=== PATIENT | female | born 1970 | race Caucasian/White ===

== ENCOUNTER 2020-11-06 07:13 | Emergency (ER) | payer OTHER ==
[2020-11-06 07:46] VITALS: BP 116/67; PULSE 78
[2020-11-06] MEDS ORDERED: Sodium Chloride 0.9% 10 ML Syringe FLUSH PRN (07:51)
[2020-11-06] MEDS ORDERED: Ondansetron 4 MG/2 ML SDV IVPUSH ONE (07:52)
--- NOTE | 2020-11-06 07:54 | EDM.PDOC ---
ED HPI GENERAL MEDICAL PROBLEM - General Chief Complaint: Gastrointestinal Problem Stated Complaint: vomiting, shaking Time Seen by Provider: 11/06/20 07:47 Source of Information: Reports: Patient, Family, RN Notes Reviewed History Limitations: Reports: No Limitations - History of Present Illness INITIAL COMMENTS - FREE TEXT/NARRATIVE: 50-year-old female presents emergency department with a complaint of nausea vomiting diarrhea she has been ill for about 24 hours no fevers no shortness of breath or chest pain she was concerned she may have food poisoning however she is the only one that sick in the household that ate the same food. She did receive Covid vaccine first dose - Related Data Allergies Allergy/AdvReac Type Severity Reaction Status Date / Time lactose Allergy Cannot Verified 11/06/20 07:35 Remember monosodium glutamate Allergy Cannot Verified 11/06/20 07:35 Remember bisacodyl AdvReac Nausea and Verified 11/06/20 07:35 Vomiting artificial sweetners AdvReac Diarrhea Uncoded 11/06/20 07:35 Home Meds: Home Meds Albuterol Sulfate [Proair Hfa] 1 - 2 puff IH Q4HR PRN 03/21/16 [History] Beclomethasone Dipropionate [Qvar] 2 puff IH BID 03/21/16 [History] Budesonide [Budesonide EC] 9 mg PO DAILY 03/21/16 [History] EPINEPHrine [Epipen 2-Hakeem] 0.3 mg SUBCUT ASDIRECTED PRN 03/21/16 [History] Lactase 3,000 unit PO DAILY 03/21/16 [History] Levothyroxine 25 mcg PO ACBREAKFAST 03/21/16 [History] Montelukast [Singulair] 10 mg PO BEDTIME 03/21/16 [History] tiZANidine 1 tab PO BEDTIME 11/06/20 [History] Past Medical History HEENT History: Reports: Allergic Rhinitis, Impaired Vision Respiratory History: Reports: Asthma Gastrointestinal History: Reports: Chronic Diarrhea, GERD, Other (See Below) Other Gastrointestinal History: lymphocytic colitis [employer] History: Reports: Endometriosis Endocrine/Metabolic History: Reports: Hypothyroidism - Past Surgical History Respiratory Surgical History: Reports: None GI Surgical History: Reports: Colonoscopy, EGD Female Surgical History: Reports: Other (See Below) Other Female Surgeries/Procedures: uteral resectioning Social & Family History - Tobacco Use Tobacco Use Status *Q: Never Tobacco User ED ROS GENERAL - Review of Systems Review Of Systems: See Below Constitutional: Reports: Weakness HEENT: Reports: No Symptoms Respiratory: Reports: No Symptoms Cardiovascular: Reports: No Symptoms GI/Abdominal: Reports: Abdominal Pain (From dry heaves), Diarrhea, Nausea, Vomiting : Reports: No Symptoms ED EXAM, GI/ABD - Physical Exam Exam: See Below Exam Limited By: No Limitations General Appearance: Alert, WD/WN, No Apparent Distress Respiratory/Chest: No Respiratory Distress, Lungs Clear, Normal Breath Sounds, No Accessory Muscle Use, Chest Non-Tender Cardiovascular: Regular Rate, Rhythm, No Murmur GI/Abdominal Exam: Soft, Non-Tender Course - Vital Signs Last Recorded V/S: Last Vital Signs Temp 96.8 F L 11/06/20 07:44 Pulse 78 11/06/20 07:44 Resp 14 11/06/20 07:44 BP 116/67 11/06/20 07:44 Pulse Ox 98 11/06/20 07:44 - Orders/Labs/Meds Orders: Active Orders 24 hr Category Date Time Status Peripheral IV Care [RC] . DIRECTED Care 11/06/20 07:51 Active Lactated Ringers [Ringers, Lactated] 1,000 ml Med 11/06/20 08:00 Active IV ASDIRECTED Sodium Chloride 0.9% [Saline Flush] Med 11/06/20 07:51 Active 10 ml FLUSH ASDIRECTED PRN Peripheral IV Insertion Adult [OM.PC] Urgent Oth 11/06/20 07:51 Ordered Medication Orders Lactated Ringer's (Ringers, Lactated) 1,000 mls @ 999 mls/hr IV ASDIRECTED CHRISTINA Last Admin: 11/06/20 08:09 Dose: 999 mls/hr Documented by: GARRET Sodium Chloride (Sodium Chloride 0.9% 10 Ml Syringe) 10 ml FLUSH ASDIRECTED PRN PRN Reason: Keep Vein Open Last Admin: 11/06/20 08:09 Dose: 10 ml Documented by: GARRET Labs: Laboratory Tests 11/06/20 11/06/20 11/06/20 Range/Units 07:52 08:09 08:09 WBC 9.0 (4.5-11.0) K/uL RBC 4.42 (3.30-5.50) M/uL Hgb 13.9 (12.0-15.0) g/dL Hct 42.5 (36.0-48.0) % MCV 96 (80-98) fL MCH 31 (27-31) pg MCHC 33 (32-36) % Plt Count 317 (150-400) K/uL Neut % (Auto) 67 H (36-66) % Lymph % (Auto) 25 (24-44) % Hockley % (Auto) 7 H (2-6) % Eos % (Auto) 0 L (2-4) % Baso % (Auto) 0 (0-1) % Sodium 146 (140-148) mmol/L Potassium 3.8 (3.6-5.2) mmol/L Chloride 106 (100-108) mmol/L Carbon Dioxide 29 (21-32) mmol/L Anion Gap 11.0 (5.0-14.0) mmol/L BUN 13 (7-18) mg/dL Creatinine 0.8 (0.6-1.0) mg/dL Est Cr Clr Drug Dosing 72.65 mL/min Estimated GFR (MDRD) > 60 (>60) Glucose 96 (74-106) mg/dL Lactic Acid (0.4-2.0) mmol/L Calcium 8.9 (8.5-10.1) mg/dL Urine Color (YELLOW) Urine Appearance (CLEAR) Urine pH (5.0-8.0) Ur Specific Pride (1.008-1.030) Urine Protein (NEGATIVE) mg/dL Urine Glucose (UA) (NEGATIVE) mg/dL Urine Ketones (NEGATIVE) mg/dL Urine Occult Blood (NEGATIVE) Urine Nitrite (NEGATIVE) Urine Bilirubin (NEGATIVE) Urine Urobilinogen (0.2-1.0) EU/dL Ur Leukocyte Esterase (NEGATIVE) Urine RBC (0-5) Urine WBC (0-5) Ur Epithelial Cells Amorphous Sediment Urine Bacteria Urine Mucus Influenza Type A RNA Negative (NEGATIVE) RSV RNA (INAAT) Negative (NEGATIVE) Influenza Type B RNA Negative (NEGATIVE) SARS-CoV-2 RNA (ERICA) Negative (NEGATIVE) 11/06/20 11/06/20 Range/Units 08:09 09:46 WBC (4.5-11.0) K/uL RBC (3.30-5.50) M/uL Hgb (12.0-15.0) g/dL Hct (36.0-48.0) % MCV (80-98) fL MCH (27-31) pg MCHC (32-36) % Plt Count (150-400) K/uL Neut % (Auto) (36-66) % Lymph % (Auto) (24-44) % [place]ock[place] % (Auto) (2-6) % Eos % (Auto) (2-4) % Baso % (Auto) (0-1) % Sodium (140-148) mmol/L Potassium (3.6-5.2) mmol/L Chloride (100-108) mmol/L Carbon Dioxide (21-32) mmol/L Anion Gap (5.0-14.0) mmol/L BUN (7-18) mg/dL Creatinine (0.6-1.0) mg/dL Est Cr Clr Drug Dosing mL/min Estimated GFR (MDRD) (>60) Glucose (74-106) mg/dL Lactic Acid 1.2 (0.4-2.0) mmol/L Calcium (8.5-10.1) mg/dL Urine Color Yellow (YELLOW) Urine Appearance Clear (CLEAR) Urine pH 8.5 H (5.0-8.0) Ur Specific Pride 1.020 (1.008-1.030) Urine Protein Negative (NEGATIVE) mg/dL Urine Glucose (UA) Negative (NEGATIVE) mg/dL Urine Ketones Negative (NEGATIVE) mg/dL Urine Occult Blood Negative (NEGATIVE) Urine Nitrite Negative (NEGATIVE) Urine Bilirubin Negative (NEGATIVE) Urine Urobilinogen 0.2 (0.2-1.0) EU/dL Ur Leukocyte Esterase Negative (NEGATIVE) Urine RBC Not seen (0-5) Urine WBC Not seen (0-5) Ur Epithelial Cells Rare Amorphous Sediment Not seen Urine Bacteria Rare Urine Mucus Not seen Influenza Type A RNA (NEGATIVE) RSV RNA (INAAT) (NEGATIVE) Influenza Type B RNA (NEGATIVE) SARS-CoV-2 RNA (ERICA) (NEGATIVE) Meds: Medications Generic Name Dose Route Start Last Admin Trade Name Freq PRN Reason Stop Dose Admin Lactated Ringer's 1,000 mls @ 999 mls/hr 11/06/20 08:00 11/06/20 08:09 Ringers, Lactated IV 999 mls/hr ASDIRECTED CHRISTINA Administration Sodium Chloride 10 ml 11/06/20 07:51 11/06/20 08:09 Sodium Chloride 0.9% 10 Ml Syringe FLUSH 10 ml ASDIRECTED PRN Administration Keep Vein Open Discontinued Medications Generic Name Dose Route Start Last Admin Trade Name Guero PRN Reason Stop Dose Admin Ketorolac Tromethamine 30 mg 11/06/20 09:46 11/06/20 09:53 Ketorolac 30 Mg/Ml Sdv IVPUSH 11/06/20 09:47 30 mg ONETIME ONE Administration Lorazepam 0.5 mg 11/06/20 09:07 11/06/20 09:16 Lorazepam 2 Mg/Ml Sdv IVPUSH 11/06/20 09:08 0.5 mg ONETIME ONE Administration Ondansetron HCl 4 mg 11/06/20 07:52 11/06/20 08:09 Ondansetron 4 Mg/2 Ml Sdv IVPUSH 11/06/20 07:53 4 mg ONETIME ONE Administration Departure - Departure Time of Disposition: 10:12 Disposition: Home, Self-Care 01 Condition: Fair Clinical Impression: Gastroenteritis - Discharge Information Instructions: Viral Gastroenteritis, Adult, [id number] Referrals: Xochilt Saenz PA [Primary Care Provider] - Forms: ED Department Discharge Additional Instructions: Continue to push fluids best you can, try the Zofran as needed for nausea vomiting symptoms, please followup with your primary care provider in 3-5 days if not better, please call return to the emergency department with worsening of symptoms. Sepsis Event Note (ED) - Evaluation Sepsis Screening Result: No Definite Risk - Focused Exam Vital Signs: Vital Signs Temp Pulse Resp BP Pulse Ox 11/06/20 07:44 96.8 F L 78 14 116/67 98 - My Orders Last 24 Hours: My Active Orders 11/06/20 07:51 Peripheral IV Care [RC] . DIRECTED Sodium Chloride 0.9% [Saline Flush] 10 ml FLUSH ASDIRECTED PRN Peripheral IV Insertion Adult [OM.PC] Urgent 11/06/20 08:00 Lactated Ringers [Ringers, Lactated] 1,000 ml IV ASDIRECTED - Assessment/Plan Last 24 Hours: My Active Orders 11/06/20 07:51 Peripheral IV Care [RC] . DIRECTED Sodium Chloride 0.9% [Saline Flush] 10 ml FLUSH ASDIRECTED PRN Peripheral IV Insertion Adult [OM.PC] Urgent 11/06/20 08:00 Lactated Ringers [Ringers, Lactated] 1,000 ml IV ASDIRECTED Plan: Assessment Acuity = acute Site and laterality = gastroenteritis Etiology = probably viral Manifestations = nausea and vomiting, diarrhea Location of injury = Home Lab values = CBC CMP urinalysis unremarkable Covid was negative Plan Was given Toradol, Zofran and Ativan 1 L fluids while in the emergency department, plan is continue to push fluids prescription for Zofran 4 mg ODT 1 tab p.o. 3 times daily as needed total #5 follow-up primary care 3 to 5 days if not better This note was dictated using [employer] voice recognition software please call with any questions on syntax or grammar.
[2020-11-06] MEDS ORDERED: Lactated Ringers 1,000 ML IV SCH (08:00)
[2020-11-06 08:45] LABS: CORONAVIRUS COVID-19 NAA NEGATIVE (NEGATIVE)
[2020-11-06] MEDS ORDERED: LORazepam 2 MG/ML SDV IVPUSH ONE (09:07)
[2020-11-06] MEDS ORDERED: Ketorolac 30 MG/ML SDV IVPUSH ONE (09:46)
== END 2020-11-06 11:08 | disposition home or self-care (01) ==
LOC: JP.ED 07:13
DX: K52.9 Noninfective gastroenteritis and colitis, unspecified (principal); J45.909 Unspecified asthma, uncomplicated; E03.9 Hypothyroidism, unspecified; Z79.899 Other long term (current) drug therapy; Z20.822 Contact with and (suspected) exposure to COVID-19; Z91.018 Allergy to other foods; Z88.8 Allergy status to other drugs, medicaments and biological substances; Z91.011 Allergy to milk products
CPT/HCPCS: 0241U; 36415; 80048; 81001; 83605; 85025; 96374; 96375; 99284; J1885; J2060; J2405; J7120

== ENCOUNTER 2022-03-08 07:58 | Day surgery (SDC) | payer BC, OTHER ==
[2022-03-08] MEDS ORDERED: fentaNYL 100 MCG/2 ML SDV ONE (08:09)
[2022-03-08] MEDS ORDERED: Propofol 200 MG/20 ML SDV ONE (08:09)
[2022-03-08] MEDS ORDERED: Midazolam 1 MG/ML 2 ML SDV ONE (08:09)
[2022-03-08] MEDS ORDERED: Lactated Ringers 1,000 ML IV SCH (08:30)
[2022-03-08 10:22] VITALS: BP 99/62; PULSE 60
== END 2022-03-08 10:26 | disposition home or self-care (01) ==
LOC: JP.SDS 07:58
PROVIDERS: ATTEND Family Medicine
DX: Z12.11 Encounter for screening for malignant neoplasm of colon (principal); E03.9 Hypothyroidism, unspecified; E66.9 Obesity, unspecified; J45.909 Unspecified asthma, uncomplicated; Z88.8 Allergy status to other drugs, medicaments and biological substances; Z68.24 Body mass index [BMI] 24.0-24.9, adult
CPT/HCPCS: 45378; J2250; J2704; J3010; J7120